=== PATIENT | female | born 1980 | race Caucasian/White ===

== ENCOUNTER → 2017-09-04 13:37 | Outpatient (CLI) | payer OTHER, SELFPAY ==
--- NOTE | 2017-09-04 13:41 | VDLE_ITS ---
Reason For Study: Swelling/varicose veins RIGHT LEFT GSV is normal. FV is compressible, spontaneous, phasic, CFV is compressible, spontaneous, phasic, competent and demonstrates normal competent and demonstrates normal augmentation. augmentation. POP V is compressible, spontaneous, phasic, FV is compressible, spontaneous, phasic, competent and demonstrates normal competent and demonstrates normal augmentation. augmentation. T/P Trunk is compressible. POP V is compressible, spontaneous, phasic, PTV is compressible. competent and demonstrates normal LT PerV is compressible. augmentation. SFJ is INCOMPETENT with reflux greater T/P Trunk is compressible. than .5 sec PTV is compressible. GSV is INCOMPETENT with reflux greater RT PerV is compressible. than .5 sec and diameter of .57 x .57 cm SFJ is INCOMPETENT with reflux greater SSV is competent. than .5 sec GSV is INCOMPETENT with reflux greater than .5 sec and diameter of.73 x .80 cm SSV is competent Two INCOMPETENT perforators 16 and 23 cm prox to medial malleolus with reflux greater than .5 sec. Procedure Exam performed in department. Interpretation Summary 1. Bilateral no DVT 2. Right GSV reflux 8mm 3. Right two perforators. 4. Left GSV reflux 5.7mm. Ordering Physician: Americo Sifuentes Performed By: Regina Lee RVT
== END ==
PROVIDERS: Family Provider Family Medicine; PCP Family Medicine; Visit Provider Surgery Vascular Surgery
DX: M79.89 Other specified soft tissue disorders (principal); I83.12 Varicose veins of left lower extremity with inflammation; I83.11 Varicose veins of right lower extremity with inflammation; M79.609 Pain in unspecified limb
CPT/HCPCS: 93970

== ENCOUNTER → 2017-12-11 13:57 | Outpatient (CLI) | payer OTHER, SELFPAY ==
--- NOTE | 2017-12-11 14:01 | VDLE_ITS ---
Reason For Study: BLE SWELLING RIGHT LEFT CFV is compressible, spontaneous, phasic, CFV is compressible, spontaneous, phasic, competent and demonstrates normal competent, and demonstrates normal augmentation. augmentation. FV is compressible, spontaneous, phasic, FV is compressible, spontaneous, phasic, competent and demonstrates normal competent and demonstrates normal augmentation. augmentation. POP V is compressible, spontaneous, phasic, POP V is compressible, spontaneous, phasic, competent and demonstrates normal competent and demonstrates normal augmentation. augmentation. T/P Trunk is compressible. T/P Trunk is compressible. PTV is compressible. PTV is compressible. RT PerV is compressible. LT PerV is compressible. SFJ is competent SFJ is competent GSV is dilated and noncompressible S/P GSV is dilated and noncompressible S/P ablation. ablation. SSV is competent. SSV is competent. Procedure Exam performed in department. The study was technically difficult. The exam was diagnostic. Interpretation Summary 1. bilateral no DVt. 2. Successful bilateral GSV evlt. Ordering Physician: Americo Sifuentes Referring Physician: Americo Sifuentes Performed By: Sunitha Hebert, CELSO, RVT
== END ==
PROVIDERS: Family Provider Family Medicine; PCP Family Medicine; Visit Provider Surgery Vascular Surgery
DX: M79.89 Other specified soft tissue disorders (principal); M79.609 Pain in unspecified limb; E11.9 Type 2 diabetes mellitus without complications; I83.12 Varicose veins of left lower extremity with inflammation; I83.11 Varicose veins of right lower extremity with inflammation
CPT/HCPCS: 93970

== ENCOUNTER → 2018-08-13 08:13 | Outpatient (CLI) | payer OTHER, SELFPAY ==
--- NOTE | 2018-08-13 08:21 | VDLE_ITS ---
Reason For Study: Swelling RIGHT LEFT CFV is compressible, spontaneous, phasic, CFV is compressible, spontaneous, phasic, competent and demonstrates normal competent, and demonstrates normal augmentation. augmentation. FV is compressible, spontaneous, phasic, FV is compressible, spontaneous, phasic, competent and demonstrates normal competent and demonstrates normal augmentation. augmentation. POP V is compressible, spontaneous, phasic, POP V is compressible, spontaneous, phasic, competent and demonstrates normal competent and demonstrates normal augmentation. augmentation. T/P Trunk is compressible. T/P Trunk is compressible. PTV is compressible. PTV is compressible. RT PerV is compressible. LT PerV is compressible. Rt GSV is occluded above knee s/p EVLA. Lt GSV is occluded above knee s/p EVLA. Procedure Exam performed in department. Interpretation Summary 1. Bilateral no dvt 2. Successful bilat gsv evlt. Ordering Physician: Americo Sifuentes Referring Physician: Americo Sifuentes Performed By: Regina Lee RVT and Student
--- OUTSIDE RECORDS SUMMARY | 2018-10-17 23:03 | XMS RPT_ITS ---
:1980 Author Organization [facility] Care Team Providers Name Role Phone JESE BUTLER Admitting Unavailable JESE BUTLER Attending Unavailable JESE BUTLER Primary Care Unavailable ALBINA BRANTLEY Consulting Unavailable PROVIDER, UNKNOWN Consulting Unavailable PROVIDER, UNKNOWN Consulting Unavailable PROVIDER, UNKNOWN Consulting Unavailable Americo Sifuentes Attending Unavailable Americo Sifuentes Referring Unavailable Jese Butler PA-C Primary Care Unavailable Americo Sifuentes Attending Unavailable Jese Butler PA-C Primary Care Unavailable Americo Sifuentes Attending Unavailable Americo Sifuentes Referring Unavailable Jese Butler-Verena Primary Care Unavailable PROBLEMS PROBLEMS DATE TYPE CONDITION / CODE ATTENDING STATUS SOURCE 12/11/2017 Unknown M79.89 - Other Americo Sifuentes Active [place] specified soft Community tissue disorders / Hospital M79.89(ICD-10) Repository 12/11/2017 Unknown M79.609 - Pain in [place] Americo Preston Active [place] unspecified limb / Community M79.609(ICD-10) Hospital Repository 12/11/2017 Unknown E11.9 - Type 2 Americo Sifuentes Active [place] diabetes mellitus Community without Hospital complications / Repository E11.9(ICD-10) PROCEDURES PROCEDURES No Procedure Records FoundRESULTS RESULTS VENOUS DUPLEX LOWER Observed: 08/13/2018 Status: F Source: [place] [facility] 11:36 AM [facility] REPOSITORY [facility] [place] [address] Venous Duplex US - Usman Extrem 08/13/18823 MR#: [id number] Acct: [id number] Name: RUY MONROE Rep #: [id number] : 1980 38 From: Americo Sifuentes MD Attending Dr: Americo Sifuentes MD Status: REG CLI Ordering Dr: Americo Sifuentes MD Date: 08/13/18 Location: [facility] Sex: F C Admitted: Reason For Study: Swelling RIGHT LEFT CFV is compressible, spontaneous, phasic, CFV is compressible, spontaneous, phasic, competent and demonstrates normal competent, and demonstrates normal augmentation. augmentation. FV is compressible, spontaneous, phasic, FV is compressible, spontaneous, phasic, competent and demonstrates normal competent and demonstrates normal augmentation. augmentation. POP V is compressible, spontaneous, phasic, POP V is compressible, spontaneous, phasic, competent and demonstrates normal competent and demonstrates normal augmentation. augmentation. T/P Trunk is compressible. T/P Trunk is compressible. PTV is compressible. PTV is compressible. RT PerV is compressible. LT PerV is compressible. Rt GSV is occluded above knee s/p EVLA. Lt GSV is occluded above knee s/p EVLA. Procedure Exam performed in department. Interpretation Summary 1. Bilateral no dvt 2. Successful bilat gsv evlt. Ordering Physician: Americo Sifuentes Referring Physician: Americo Sifuentes Performed By: Regina Lee RVT and Student 08/13/18 2858 Date Americo Sifuentes MD CC: TORIN Butler; Americo Sifuentes MD Date Dictated: 08/13/18 0824 Date Transcribed: 08/13/181134 Learning Program Manager: Signed LIPID PROFILE Collected: 08/13/2018 Status: F Source: [facility] 7:26 [facility] REPOSITORY TYPE CODE TESTS RESULT OUT OF REFERENCE UNITS RANGE LAB LIPID PROFILE(LOIN C) LIPID PROFILE Result Comment: LIPID PROFILE LAB TRIGLYCERIDE(LOINC) 0 - 150 mg/dl High TRIGLYCERIDE 198 LAB CHOLESTEROL(LOINC) 0 - 200 mg/dl CHOLESTEROL High 205 LAB HDL(LOINC) 40 - 60 mg/dl HDL 43 LAB CHOL/HDL(LOINC) 0.0 - 5.0 CHOL/HDL 4.8 LAB LDL(LOINC) 0 - 129 mg/dl LDL 122 Performed By: #### [id number] #### [facility],[address] [place] [address] CMP WITH EGFR Collected: 08/13/2018 Status: F Source: [facility] 7:26 [facility] REPOSITORY TYPE CODE TESTS RESULT OUT OF RANGE REFERENCE UNITS LAB CMP with eGFR(LOINC) CMP with eGFR Result Comment: COMPREHENSIVE METABOLIC PANEL LAB SODIUM(LOINC) 136 - 145 mmol/l SODIUM 137 LAB POTASSIUM(LOINC) 3.5 - 5.1 mmol/L POTASSIUM 4.0 LAB CHLORIDE(LOINC) 98 - 107 mmol/L CHLORIDE 101 LAB CO2(LOINC) 21.0 - mmol/L 31.0 CO2 26.6 LAB GLUCOSE(LOINC) 74 - 106 mg/dl GLUCOSE High 185 LAB BUN(LOINC) 6 - 20 mg/dl BUN 12 LAB CREATININE(LOINC) 0.6 - 1.2 mg/dl CREATININE 0.7 LAB AST/SGOT(LOINC) 13 - 39 U/L AST/SGOT 25 LAB ALK PHOS(LOINC) 38 - 126 U/L ALK PHOS 44 LAB CALCIUM(LOINC) 8.6 - mg/dl 10.2 CALCIUM 9.6 LAB TOTAL 6.4 - 8.3 g/dl PROTEIN(LOINC) TOTAL PROTEIN 7.4 LAB ALBUMIN(LOINC) 3.4 - 4.8 g/dL ALBUMIN 4.2 LAB GLOBULIN(LOINC) 1.5 - 3.8 G/DL GLOBULIN 3.2 LAB A/G RATIO(LOINC) 0.9 - 1.6 A/G RATIO 1.3 LAB TOTAL BILI(LOINC) 0.0 - 1.5 mg/dl TOTAL BILI 0.7 LAB B/C RATIO(LOINC) 0 - 30 ratio B/C RATIO 17 LAB ALT/SGPT(LOINC) 8 - 35 U/L ALT/SGPT 33 LAB ANION GAP(LOINC) 10 - 20 mmol/L ANION GAP 13 LAB AGE(LOINC) years AGE 38 LAB eGFR(LOINC) 60 - 999 ML/MINUTE eGFR >60 LAB eGFR(AA)(LOINC) 60 - 999 ML/MINUTE eGFR(AA) >60 Result Comment: ACCORDING TO THE NATIONAL KIDNEY DISEASE EDUCATION PROGRAM(NKDE), A NORMAL eGFR IS A VALUE GREATER THAN OR EQUAL TO 60 ML/MIN/1.73 SQ METERS. CHRONIC KIDNEY DISEASE: <60mL/MIN/1.73 SQ METERS KIDNEY FAILURE: <15mL/MIN/1.73 SQ METERS THIS TEST SHOULD ONLY BE USED FOR PATIENTS 18 YEARS OF AGE AND OLDER. Performed By: #### [id number] #### [facility],[address] [place] [address] HGB A1C [CCL] Collected: 08/13/2018 Status: F Source: [facility] 7:26 AM [facility] REPOSITORY TYPE CODE TESTS RESULT OUT OF RANGE REFERENCE UNITS LAB HGB A1C [CCL](LOINC ) HGB A1C [CCL] Result Comment: _HEMOGLOBIN A1C_ HGB A1C [CCL] Reported: 08/14/2018 08:58 Status=F TEST RESULT FLAG RANGE UNITS Hemoglobin A1c 6.8 H 4.3-5.6 % 08/14/18.00.rfl.[email or web address].ATLR [place] [employer] guidelines indicate that patients with HgbA1c in the range 5.7-6.4% are at increased risk for development of diabetes, and intervention by lifestyle modification may be beneficial. HgbA1c greater or equal to 6.5% is considered diagnostic of diabetes. Est. Average Glucose 148 mg/dL 08/14/18.rfl.COMPLETE.ATLR eAG: (Estimated average glucose) is a calculated value from HgbA1c and is customer assistance representative of the average blood glucose level in the last 2-[address] [facility] [address] [place] [address] Lupe Collazo M.D. [id number] Performed By: #### [id number] #### [facility],[address] [place] [address] HEMOGLOBIN A1C Collected: 08/13/2018 Status: F Source: [facility] 7:26 AM CLINIC REFERENCE REPOSITORY TYPE CODE TESTS RESULT OUT OF REFERENCE UNITS RANGE LAB HGBA1C(ERIC 4.3-5.6 % NC) High Hemoglobin A1c 6.8 LAB HBA0(LOINC mg/dL ) Est. Average Glucose 148 Performed By: #### HBA1C #### [facility] Routine Lab [address] [id number] VENOUS DUPLEX LOWER Observed: 12/12/2017 Status: F Source: [facility] 5:43 PM [facility] REPOSITORY [facility] Cardiovascular Services [address] [place] [address] Venous Duplex - [facility] 12/11/17 1406 MR#: [id number] Acct: [id number] Name: RUY MONROE Rep #: [id number] : 1980 37 From: Americo Sifuentes MD Attending Dr: Americo Sifuentes MD Status: REG CLI Ordering Dr: Americo Sifuentes MD Date: 12/11/17 Location: [facility] Sex: F C Admitted: Reason For Study: BLE SWELLING RIGHT LEFT CFV is compressible, spontaneous, phasic, CFV is compressible, spontaneous, phasic, competent and demonstrates normal competent, and demonstrates normal augmentation. augmentation. FV is compressible, spontaneous, phasic, FV is compressible, spontaneous, phasic, competent and demonstrates normal competent and demonstrates normal augmentation. augmentation. POP V is compressible, spontaneous, phasic, POP V is compressible, spontaneous, phasic, competent and demonstrates normal competent and demonstrates normal augmentation. augmentation. T/P Trunk is compressible. T/P Trunk is compressible. PTV is compressible. PTV is compressible. RT PerV is compressible. LT PerV is compressible. SFJ is competent SFJ is competent GSV is dilated and noncompressible S/P GSV is dilated and noncompressible S/P ablation. ablation. SSV is competent. SSV is competent. Procedure Exam performed in department. The study was technically difficult. The exam was diagnostic. Interpretation Summary 1. bilateral no DVt. 2. Successful bilateral GSV evlt. Ordering Physician: Americo Sifuentes Referring Physician: Americo Sifuentes Performed By: Sunitha Hebert, CELSO, RVT 12/12/17 1742 Date Americo Sifuentes MD CC: TORIN Butler; Americo Sifuentes MD Date Dictated: 12/11/17 1406 Date Transcribed: 12/12/17 174 Learning Program Manager: Signed VENOUS DUPLEX LOWER Observed: 09/05/2017 Status: F Source: [facility] 3:36 PM [facility] REPOSITORY [facility] Cardiovascular Services [address] [address] Venous Duplex US - Usman Extrem 09/04/17 1342 MR#: [id number] Acct: [id number] Name: RUY MONROE Rep #: [id number] : 1980 37 From: Americo Sifuentes MD Attending Dr: Americo Sifuentes MD Status: REG CLI Ordering Dr: Americo Sifuentes MD Date: 09/04/17 Location: [facility] Sex: F C Admitted: Reason For Study: Swelling/varicose veins RIGHT LEFT GSV is normal. FV is compressible, spontaneous, phasic, CFV is compressible, spontaneous, phasic, competent and demonstrates normal competent and demonstrates normal augmentation. augmentation. POP V is compressible, spontaneous, phasic, FV is compressible, spontaneous, phasic, competent and demonstrates normal competent and demonstrates normal augmentation. augmentation. T/P Trunk is compressible. POP V is compressible, spontaneous, phasic, PTV is compressible. competent and demonstrates normal LT PerV is compressible. augmentation. SFJ is INCOMPETENT with reflux greater T/P Trunk is compressible. than .5 sec PTV is compressible. GSV is INCOMPETENT with reflux greater RT PerV is compressible. than .5 sec and diameter of .57 x .57 cm SFJ is INCOMPETENT with reflux greater SSV is competent. than .5 sec GSV is INCOMPETENT with reflux greater than .5 sec and diameter of.73 x .80 cm SSV is competent Two INCOMPETENT perforators 16 and 23 cm prox to medial malleolus with reflux greater than .5 sec. Procedure Exam performed in department. Interpretation Summary 1. Bilateral no DVT 2. Right GSV reflux 8mm 3. Right two perforators. 4. Left GSV reflux 5.7mm. Ordering Physician: Americo Sifuentes Performed By: Regina Lee RVT 09/05/17 1536 Date Americo Sifuentes MD CC: TORIN Hernandez Steele; Americo Sifuentes MD Date Dictated: 09/04/17 1342 Date Transcribed: 09/05/17 1536 Learning Program Manager: Signed ALLERGIES ALLERGIES DATE TYPE / CODE NAME / CODE REACTION SEVERITY SOURCE Miscellaneous No Known Moderate Quinten Suarez Allergy/[id number](S Allergies ([facility]) Modifier) Hospital (Qualifier Repository Value) ENCOUNTERS ENCOUNTERS ADMIT/DISCHARGE ACCOUNT ADMITTING ENCOUNTER LOCATION SOURCE NUMBER CLASS 08/13/2018 [id number] [facility] [address] [facility] ing:[facility] Repository 08/13/2018/ [id number] [place], [facility] 9 [facility] Repository 12/11/2017 [id number] Amb[facility] [place] [address] [facility] ing:[facility] Repository 09/04/2017 [id number] Amb[place] [address] [facility] ing:[facility] Repository PAYERS PAYERS ENCOUNTER GUARANTOR PAYER SUBSCRIBER SOURCE 08/13/2018 RUY Alonso Primary RUY Alanoster [id number] Insurance:[facility] DOYLEDOB: [facility] BOX CARE [id number] Number: Repository [id number]: [phone] [id number] [phone] () Date:[id number] [address], [place] [address]XW: 08/13/2018 Secondary NOT GIVENUNK [place] Insurance:SELF PAY [facility] Number: Effective Repository Date:2018-08-08 08/13/2018 RUY M Primary RUY Suarez DOYLEDOB: Insurance:UNITED DOYLEDOB: [facility] 1980 O HEALTHCARE COMMERCIAL [id number] Hospital [address] [facility] [address] Repository MAIN Number: [facility] [place] [id number] [place] [address]Avz: [phone]) Date:Plan Name: [id number] [phone] () 12/11/2017 RUY Alonso Primary RUY Cramer [id number] Insurance:[employer] DOYLEDOB: Community [address] BOX CARE [id number] Number: Repository [id number]: [id number] [phone] Date:[id number] [address] () [id number], [place] [address]XB: 12/11/2017 Secondary NOT GIVENUNK [place] Insurance:SELF PAY [facility] Number: Effective Repository Date:2017-12-02 09/04/2017 RUY Alonso Primary RUY Cramer [id number] Insurance:[employer] DOYLEDOB: Community MAIN [facility] CARE [id number] Hospital [address]OX Number: Repository [address] [place] [address] [id number]: Date:[id number] [phone]~33 [id number], [place] [address] () [address]WL: 09/04/2017 Secondary NOT GIVENUNK [place] Insurance:SELF PAY [facility] Number: Effective Repository Date:2017-08-14
== END ==
PROVIDERS: Family Provider Family Medicine; PCP Family Medicine; Referring Provider Surgery Vascular Surgery; Visit Provider Surgery Vascular Surgery
DX: M79.89 Other specified soft tissue disorders (principal); M79.609 Pain in unspecified limb; I83.12 Varicose veins of left lower extremity with inflammation; I83.11 Varicose veins of right lower extremity with inflammation; E11.9 Type 2 diabetes mellitus without complications
CPT/HCPCS: 93970